=== PATIENT | female | born 1980 | race Two or more races ===

== ENCOUNTER 2017-04-15 22:00 | Inpatient (IN) | payer BC ==
[2017-04-15 23:14] LABS: ABSOLUTE BASOPHILS # (AUTO) 0.1 10^3/uL (0.0-0.2); ABSOLUTE EOSINOPHILS # (AUTO) 0.1 10^3/uL (0.0-0.6); ABSOLUTE LYMPHOCYTES (AUTO) 1.2 10^3/uL (0.5-4.7); ABSOLUTE MONOCYTES (AUTO) 0.4 10^3/uL (0.1-1.4); ABSOLUTE NEUT (AUTO) 6.4 10^3/uL (1.7-8.2); BASOPHILS % (AUTO) 0.7 % (0-2); EOSINOPHILS % (AUTO) 0.7 % (0-6); HEMATOCRIT 35.5 % (36.0-47.0); HEMOGLOBIN 11.6 g/dL (12.0-15.5); HGB HCT DIFFERENCE -0.7; LYMPHOCYTES % (AUTO) 14.9 % (13-45); MEAN CORPUSCULAR HEMOGLOBIN 24.5 pg (27.0-33.4); MEAN CORPUSCULAR HGB CONC 32.5 g/dL (32.0-36.0); MEAN CORPUSCULAR VOLUME 75 fl (80-97); RED BLOOD COUNT 4.71 10^6/uL (3.72-5.28); RED CELL DISTRIBUTION WIDTH 16.3 % (11.5-14.0); SEGMENTED NEUTROPHILS % (AUTO) 78.7 % (42-78); WHITE BLOOD COUNT 8.1 10^3/uL (4.0-10.5)
[2017-04-15] MEDS ORDERED: HYDROCODONE/ACETAMINOPHEN 5-325 MG TABLET PO ONE (23:27)
[2017-04-15 23:29] LABS: ALANINE AMINOTRANSFERASE 31 U/L (9-52); ALBUMIN 4.4 g/dL (3.5-5.0); ALKALINE PHOSPHATASE 66 U/L (38-126); ANION GAP 12 (5-19); ASPARTATE AMINO TRANSFERASE 22 U/L (14-36); BILIRUBIN,DIRECT 0.3 mg/dL (0.0-0.4); BILIRUBIN,TOTAL 0.4 mg/dL (0.2-1.3); BLOOD UREA NITROGEN 17 mg/dL (7-20); CALCIUM 9.4 mg/dL (8.4-10.2); CARBON DIOXIDE 24 mmol/L (22-30); CHLORIDE 102 mmol/L (98-107); CREATININE RESULT 0.68 mg/dL (0.52-1.25); GLUCOSE 127 mg/dL (75-110); LIPASE 86.6 U/L (23-300); POTASSIUM 4.3 mmol/L (3.6-5.0); SODIUM 137.7 mmol/L (137-145); TOTAL PROTEIN 7.7 g/dL (6.3-8.2)
--- NOTE | 2017-04-15 23:30 | ER Document Report ---
ED General - General Chief Complaint: Abdominal Pain Stated Complaint: ABDOMINAL PAIN Time Seen by Provider: 04/15/17 22:53 Mode of Arrival: Ambulatory Information source: Patient Notes: 36-year-old female presents with complaints of suprapubic right lower quadrant abdominal pain as of this morning. Patient noticed that she had flank pain pain when she urinated. Patient denies any fevers admits to sweats with nausea vomiting 2 Patient denies any previous abdominal surgeries TRAVEL OUTSIDE OF THE [place] IN LAST 30 DAYS: No - HPI Onset: This afternoon Onset/Duration: Sudden Quality of pain: Achy Severity: Mild Pain Level: 1 Associated symptoms: Diarrhea, Nausea, Vomiting Exacerbated by: Denies Relieved by: Denies Similar symptoms previously: No Recently seen / treated by doctor: No - Related Data Allergies/Adverse Reactions: aspirin Allergy (Verified 04/15/17 22:51) Past Medical History - Social History Smoking Status: Never Smoker Cigarette use (# per day): No Chew tobacco use (# tins/day): No Smoking Education Provided: No Family History: Reviewed & Not Pertinent Renal/ Medical History: Denies: Hx Peritoneal Dialysis Review of Systems - Review of Systems Notes: REVIEW OF SYSTEMS: CONSTITUTIONAL : Denies fever, chills, or sweats. Denies recent illness. EENT: Denies eye, ear, throat, or mouth pain or symptoms. Denies nasal or sinus congestion or discharge. Denies throat, tongue, or mouth swelling or difficulty swallowing. CARDIOVASCULAR: Denies chest pain. Denies palpitations or racing or irregular heart beat. Denies ankle edema. RESPIRATORY: Denies cough, cold, or chest congestion. Denies shortness of breath, difficulty breathing, or wheezing. GASTROINTESTINAL: Admits to right lower quadrant abdominal pain GENITOURINARY: Denies difficulty urinating, painful urination, burning, frequency, blood in urine, or discharge. FEMALE GENITOURINARY: Denies vaginal bleeding, heavy or abnormal periods, irregular periods. Denies vaginal discharge or odor. MUSCULOSKELETAL: Denies back or neck pain or stiffness. Denies joint pain or swelling. SKIN: Denies rash, lesions or sores. HEMATOLOGIC : Denies easy bruising or bleeding. LYMPHATIC: Denies swollen, enlarged glands. NEUROLOGICAL: Denies confusion or altered mental status. Denies passing out or loss of consciousness. Denies dizziness or lightheadedness. Denies headache. Denies weakness or paralysis or loss of use of either side. Denies problems with gait or speech. Denies sensory loss, numbness, or tingling. Denies seizures. PSYCHIATRIC: Denies anxiety or stress. Denies depression, suicidal ideation, or homicidal ideation. ALL OTHER SYSTEMS REVIEWED AND NEGATIVE. PHYSICAL EXAMINATION: GENERAL: Well-appearing, well-nourished and in no acute distress. HEAD: Atraumatic, normocephalic. EYES: Pupils equal round and reactive to light, extraocular movements intact, conjunctiva are normal. ENT: Nares patent, oropharynx clear without exudates. Moist mucous membranes. NECK: Normal range of motion, supple without lymphadenopathy LUNGS: Breath sounds clear to auscultation bilaterally and equal. No wheezes rales or rhonchi. HEART: Regular rate and rhythm without murmurs ABDOMEN: Soft, moderately tender in the suprapubic right lower quadrant no rebound or guarding Female : deferred Musculoskeletal: Normal range of motion, no pitting or edema. No cyanosis. NEUROLOGICAL: Cranial nerves grossly intact. Normal speech, normal gait. Normal sensory, motor exams PSYCH: Normal mood, normal affect. SKIN: Warm, Dry, normal turgor, no rashes or lesions noted. Dictation was performed using [employer] voice recognition software Physical Exam - Vital signs Vitals: Temp Pulse Resp BP Pulse Ox 97.9 F 73 16 126/81 H 100 04/15/17 22:09 04/15/17 22:09 04/15/17 22:09 04/15/17 22:09 04/15/17 22:09 Course - Re-evaluation Re-evalutation: 04/15/17 23:29 Patient has probable urinary tract infection given the pain with urination, I explained my concerns for intra-abdominal source of infection as well 04/16/17 00:36 Urinalysis notes no obvious sign of infection, CT abdomen pelvis ordered 04/16/17 03:55 CT was consistent with acute appendicitis, given patient's level of pain I did speak with the on-call surgeon who agrees to take the patient - Vital Signs Vital signs: Temp Pulse Resp BP Pulse Ox 97.9 F 73 16 126/81 H 100 04/15/17 22:09 04/15/17 22:09 04/15/17 22:09 04/15/17 22:09 04/15/17 22:09 - Laboratory Result Diagrams: 04/15/17 22:45 04/15/17 22:45 Laboratory results interpreted by me: 04/15/17 04/15/17 04/15/17 22:45 22:45 23:40 Hgb 11.6 L Hct 35.5 L MCV 75 L MCH 24.5 L RDW 16.3 H Seg Neutrophils % 78.7 H Glucose 127 H Urine Ketones 20 H Urine Blood MODERATE H - Diagnostic Test Radiology reviewed: Image reviewed, Reports reviewed - Acute appendicitis Discharge - Discharge Clinical Impression: Nausea, vomiting, and diarrhea Acute appendicitis Qualifiers: Acute appendicitis type: with localized peritonitis Qualified Code(s): K35.3 - Acute appendicitis with localized peritonitis Condition: Stable Disposition: ADMITTED INPATIENT Admitting Provider: Surgicalist Unit Admitted: Surgical Floor
[2017-04-16 00:33] LABS: APPEARANCE,URINE SLIGHTLY-CLOUDY; BILIRUBIN,URINE NEGATIVE (NEGATIVE); GLUCOSE, URINE NEGATIVE (NEGATIVE); KETONES,URINE 20 mg/dL (NEGATIVE); LEUKOCYTE ESTERASE,URINE NEGATIVE (NEGATIVE); NITRITE,URINE NEGATIVE (NEGATIVE); PROTEIN,URINE NEGATIVE (NEGATIVE); URINE SPECIFIC GRAVITY 1.021; UROBILINOGEN,URINE NEGATIVE mg/dL (<2.0)
[2017-04-16] MEDS ORDERED: ONDANSETRON HCL INJ/PF 4 MG/2 ML SDV IV ONE (01:09)
[2017-04-16] MEDS ORDERED: NORMAL SALINE 1000 ML 1,000 ML IV ONE ×2 (01:09→04:08)
[2017-04-16] MEDS ORDERED: MORPHINE SULFATE 10 MG/ML INJ IV ONE (01:09)
[2017-04-16] MEDS ORDERED: METOCLOPRAMIDE HCL INJ/PF 10 MG/2 ML SDV IV ONE (01:54)
--- NOTE | 2017-04-16 03:45 | RADIOLOGY REPORT (SQ) ---
EXAM DESCRIPTION: CT ABD/PELVIS WITH IV ORAL COMPLETED DATE/TIME: 04/16/2017 3:13 am REASON FOR STUDY: RLQ pain COMPARISON: None. TECHNIQUE: CT scan of the abdomen and pelvis performed using helical scanning technique with dynamic intravenous contrast injection. No oral contrast. Images reviewed with lung, soft tissue, and bone windows. Reconstructed coronal and sagittal MPR images reviewed. Delayed images for evaluation of the urinary system also acquired. All images stored on PACS. All CT scanners at this facility use dose modulation, iterative reconstruction, and/or weight based d osing when appropriate to reduce radiation dose to as low as reasonably achievable (ALARA). [facility]: Dose Right [facility]: CareDose [facility]: Dose Right [facility]: Teradose 4D [facility]: HealthLinkNow CONTRAST TYPE AND DOSE: contrast/concentration: Isovue 370.00 mg/ml; Total Contrast Delivered: 89.0 ml; Total Saline Delivered: 70.0 ml RENAL FUNCTION: None required. The patient is less than 50 years old. RADIATION DOSE: Up-to-date CT equipment and radiation dose reduction techniques were employed. CTDIv ol: 21.3 - 21.3 mGy. DLP: 2198 mGy-cm.. LIMITATIONS: None. FINDINGS: LOWER CHEST: Mild bibasilar atelectasis. No pleural effusion. LIVER: Scattered low density areas within the liver parenchyma measuring up to 1.7 cm, probably repre senting small cysts. No dilated ducts. SPLEEN: Normal size. PANCREAS: No significant calcifications. No adjacent inflammation or peripancreatic fluid collections . Pancreatic duct not dilated. GALLBLADDER: No identified stones by CT criteria. No inflammatory changes to suggest cholecystitis. ADRENAL GLANDS: No significant masses or asymmetry. RIGHT KIDNEY AND URETER: No solid masses. No significant calcifications. No hydronephrosis or hyd roureter. LEFT KIDNEY AND URETER: No solid masses. No significant calcifications. No hydronephrosis or hydr oureter. AORTA AND VESSELS: No abdominal aortic aneurysm. RETROPERITONEUM: No retroperitoneal hemorrhage or masses. BOWEL AND PERITONEAL CAVITY: No dilated bowel loops or inflammatory changes. No free fluid or or free -air. APPENDIX: Mildly prominent measuring 8 mm in diameter. There is no periappendiceal soft tissue stran ding or fluid collection. PELVIS: The urinary bladder is distended. The uterus is present. There is a 5.3 x 6.4 x 4.4 mass co ntaining fat, soft tissue and calcification at the right adnexa, appearance most consistent with an o varian dermoid. No free fluid. ABDOMINAL WALL: No hernias. BONES: No acute findings. IMPRESSION: Mildly prominent appendix measuring 8 mm in diameter with no periappendiceal soft tissue stranding, may represent normal variant versus early acute appendicitis. Please correlate with clin ical exam. Right-sided ovarian dermoid. If surgical removal is not performed, then this can be followup with ye alexandra pelvic ultrasounds. TECHNICAL DOCUMENTATION: JOB ID: [id number] Quality ID # [id number]: Final reports with documentation of one or more dose reduction techniques (e.g., Au tomated exposure control, adjustment of the mA and/or kV according to patient size, use of iterative reconstruction technique) 2010 [employer]- All Rights Reserved
[2017-04-16] MEDS ORDERED: PIPERACILLIN/TAZOBACTAM 3.375 GM VIAL IV ONE (04:07)
--- NOTE | 2017-04-16 04:21 | PDOC H&P ---
History of Present Illness Admission Date/PCP: 04/16/17 04:05 LASHAUN SANDRA NP Patient complains of: right lower quadrant pain History of Present Illness: ERASTO DUENAS is a 36 year old female who presents with complaints of suprapubic right lower quadrant abdominal pain as of this morning. Patient noticed that she had flank pain pain when she urinated. Patient denies any fevers admits to sweats with nausea vomiting 2 Patient denies any previous abdominal surgeries Past Medical History Medical History: None Past Surgical History Past Surgical History: Reports: None Social History Smoking Status: Never Smoker Family History Family History: Reviewed & Not Pertinent Parental Family History Reviewed: Yes - negative Children Family History Reviewed: Yes - negative Sibling(s) Family History Reviewed.: Yes - negative Medication/Allergy Allergies/Adverse Reactions: aspirin Allergy (Verified 04/15/17 22:51) Physical Exam Vital Signs: Temp Pulse Resp BP Pulse Ox 97.9 F 94 18 119/67 98 04/16/17 03:57 04/16/17 03:57 04/16/17 03:57 04/16/17 03:57 04/16/17 03:57 General appearance: PRESENT: no acute distress Eye exam: PRESENT: EOMI Neck exam: PRESENT: full ROM Respiratory exam: PRESENT: clear to auscultation michael Cardiovascular exam: PRESENT: RRR GI/Abdominal exam: PRESENT: normal bowel sounds - tender in the right lower quadrant, tenderness Results Impressions: Abdomen/Pelvis CT 04/16/17 00:00 IMPRESSION: Mildly prominent appendix measuring 8 mm in diameter with no periappendiceal soft tissue stranding, may represent normal variant versus early acute appendicitis. Please correlate with clinical exam. Right-sided ovarian dermoid. If surgical removal is not performed, then this can be followup with yearly pelvic ultrasounds. Assessment & Plan - Diagnosis (1) Acute appendicitis Qualifiers: Acute appendicitis type: with localized peritonitis Qualified Code(s): K35.3 - Acute appendicitis with localized peritonitis - Plan Summary Plan Summary: Assessment: Right lower quadrant pain wit nausea CT scan shows inflamed appendix without stranding presence of R ovarian dermoid Blood work within normal limits Physical exam shows pointed right lower quadrant tenderness Plan: Aggressive IV hydration (total 2 L NS, then NS 150 mL/hr) Zosyn 3.375 gr IVPB before surgery Plan laparoscopic appendectomy, possible open. Procedure, risks, benefits, complications, alternatives explained to the patient, she understands all the above, her questions were answered, and she decides to proceed
[2017-04-16] MEDS ORDERED: BUPIVACAINE HCL 0.5%-EPI 1:200000 INJ/PF 30 ML VIAL ONE (04:31)
[2017-04-16] MEDS ORDERED: FENTANYL CITRATE INJ/PF 100 MCG/2 ML AMPUL ONE (04:39)
[2017-04-16] MEDS ORDERED: MIDAZOLAM 2 MG/2 ML INJ ONE (04:39)
[2017-04-16] MEDS ORDERED: ONDANSETRON HCL INJ/PF 4 MG/2 ML SDV ONE (04:39)
[2017-04-16] MEDS ORDERED: KETOROLAC TROMETHAMINE 60 MG/2 ML SDV ONE (04:39)
[2017-04-16] MEDS ORDERED: ACETAMINOPHEN 100 ML IV ONE (04:40)
[2017-04-16] MEDS ORDERED: PROPOFOL INJ 200 MG/20 ML VIAL IV ONE (04:40)
[2017-04-16] MEDS ORDERED: HYDROMORPHONE HCL INJ/PF 2 MG/ML AMPULE ONE (04:40)
[2017-04-16] MEDS ORDERED: PROMETHAZINE HCL INJ 25 MG/1 ML VIAL IV PRN (05:16)
[2017-04-16] MEDS ORDERED: MEPERIDINE HCL/PF INJ 25 MG/1 ML DISP.SYRIN IV PRN (05:16)
[2017-04-16] MEDS ORDERED: DIPHENHYDRAMINE HCL 50 MG/ML VIAL IV PRN (05:16)
[2017-04-16] MEDS ORDERED: FENTANYL CITRATE INJ/PF 100 MCG/2 ML AMPUL IV PRN ×3 (05:16)
[2017-04-16] MEDS ORDERED: MORPHINE SULFATE 10 MG/ML INJ IV PRN ×2 (05:16→06:31)
[2017-04-16] MEDS ORDERED: ONDANSETRON HCL INJ/PF 4 MG/2 ML SDV IV PRN (05:16)
[2017-04-16] MEDS ORDERED: NORMAL SALINE 1,000 ML IV PRN (06:31)
--- NOTE | 2017-04-16 06:31 | Operative Report ---
Operative Report DATE OF SURGERY: 04/16/17 PREOPERATIVE DIAGNOSIS: Acute appendicitis; Right dermoid cyst POSTOPERATIVE DIAGNOSIS: Normal appendix, dermoid cyst OPERATION: diagnostic laparotomy, laparoscopic appendectomy SURGEON: SANJUANA TORRES 1ST CHANNELER OUTSOLE: SHANNON BURRIS ANESTHESIA: Local TISSUE REMOVED OR ALTERED: appendix COMPLICATIONS: none ESTIMATED BLOOD LOSS: minimal <10 cc INTRAOPERATIVE FINDINGS: normal appendix. large right ovarian dermoid cyst PROCEDURE: lDiagnostic laparoscopy Laparoscoic appendectomy
--- NOTE | 2017-04-16 06:53 | OPERATIVE REPORT E ---
Operative Report NAME: ERASTO DUENAS : 1980 AGE: 36Y DATE OF SURGERY: 04/16/2017 ROOM: ED02 PREOPERATIVE DIAGNOSIS: PELVIC PAIN. POSTOPERATIVE DIAGNOSES: 1. TORSED RIGHT OVARIAN OVARY. 2. GROSSLY NORMAL-APPEARING APPENDIX IN PATIENT WITH RIGHT-SIDED PELVIC PAIN. OPERATION: 1. Appendectomy, Dr. Fairbanks. 2. Right salpingo-oophorectomy, Fara Lua MD PRIMARY SURGEON: Dimas Fairbanks MD EPIDEMIOLOGY INVESTIGATOR SURGEON: FARA LUA M.D. FINDINGS: There was approximately a 6 to 7 cm purplish right ovarian mass in the right lower quadrant with edematous fallopian tube around the base of it. The uterus and left tube and ovary appeared normal. The appendix appeared grossly normal. ESTIMATED BLOOD LOSS: Per Dr. Fairbanks. SPECIMENS REMOVED: 1. Appendix by Dr. Fairbanks. 2. Right tube and ovary by Fara Lua MD, all to pathology. 3. There was also fluid from the apparent dermoid cyst that was removed and sent for cytology. DESCRIPTION OF PROCEDURE: I was called to the operating room by Dr. Fairbanks after the patient was under general anesthesia and with ports in place. He was near the end of performing the appendectomy when I arrived. We then reviewed the right ovarian cyst which was torsed. I scrubbed into the case. At that point, the appendix was out. The infundibulopelvic vessels and uteroovarian vessels were coagulated and cut with the LigaSure. The tube was coagulated and cut near the uterus. The pedicles were connected. Care was taken to avoid the ureter during this process. Excellent hemostasis was observed. After detaching the torsed tube and ovary, the Endo Catch bag was placed within the 12 mm umbilical trocar and the specimen delivered into it. The trocar was removed and the specimen was brought to the level of the fascia. The bag was opened. The cyst was drained. Some of this fluid was sent for cytology. Using Kochers, the specimen was morcellated inside the bag and removed in pieces. Hair was removed during this process. The Endo Catch bag was totally removed as the specimen decompressed. The trocar was then replaced. The abdomen was insufflated again and the pelvis irrigated with saline. Hemostasis was assured. Dr. Fairbanks then closed the umbilical 12 mm incision port with an Endostitch under direct visualization. All trocars were removed and the abdomen was desufflated. The fascial stitch was tied down. He then closed the skin incisions. The patient was awakened from anesthesia and taken to recovery in stable condition. All sponge, needle, lap, and instrument counts were correct x2. DICTATING PHYSICIAN: FARA LUA M.D. [id number] PHY#: [id number] ID: [id number] JOB#: [id number] ACCT: [id number] cc:FARA LUA M.D. > MTDD
--- NOTE | 2017-04-16 07:39 | OPERATIVE REPORT E ---
Operative Report NAME: ERASTO DUENAS : 1980 AGE: 36Y DATE OF SURGERY: 04/16/2017 ROOM: ED02 PREOPERATIVE DIAGNOSES: 1. Acute appendicitis. 2. Dermoid cyst. POSTOPERATIVE DIAGNOSES: 1. Normal appendix. 2. Dermoid cyst. PROCEDURES: 1. Diagnostic laparoscopy. 2. Appendectomy. SURGEON: SANJUANA TORRES M.D. ANESTHESIA: General plus 10 mL of 0.5% Marcaine with epinephrine. FLUIDS: 1500 mL. DRAINS: None. COMPLICATIONS: None. INDICATION AND FINDINGS: A 36-year-old healthy female with a history of right lower quadrant pain. She had a CT scan abdomen and pelvis revealing the presence of inflamed distal appendix. In addition, there was a large dermoid cyst and followup with yearly ultrasound was recommended by the radiologist. A decision was made to take the patient to surgery to undergo diagnostic laparoscopy and laparoscopic appendectomy. DESCRIPTION OF PROCEDURE: The patient was brought into the operating room and the patient was placed in a supine position. General anesthesia induced by endotracheal intubation. Abdomen prepped and draped in the usual fashion. An incision was made just above the umbilicus. A 5 mm port and scope were inserted through the abdominal wall into the peritoneal cavity. CO2 pneumoperitoneum was then established. Under direct visualization, a 5 mm port was inserted in the right lateral quadrant of the abdomen. The 5 mm port over the umbilicus was removed and replaced with a 12 mm port and the 5 mm port was inserted in the left lower quadrant of the abdomen. The patient was placed in a Trendelenburg position with right side elevation. Examination of the right side of the abdomen revealed a normal appendix and large dermoid cyst with discoloration of the pedicle of the dermoid cyst as well, as well as discoloration of a portion of the ovary and the tube. At this point, a decision was made to perform the appendectomy and to call the [employer] insurance sales professional, Dr. Lua, to properly treat this large dermoid cyst. The appendectomy was performed by grasping the appendix at the level of the tip and the mesoappendix was divided with LigaSure and three Endoloops were placed at the base of the appendix. This was divided between the Endoloops and removed from the peritoneal cavity within an Endobag. The appendiceal stump exposed mucosa was cauterized with Bovie. Dr. Lua will describe her procedure, which included a right salpingo-oophorectomy with dermoid cyst excision ,in a separate setting. After the right salpingo-oophorectomy was accomplished, the peritoneal cavity was irrigated with normal saline until clear and this was fully aspirated. The umbilical fascial defect was closed with a figure of eight 0 Vicryl suture, which was left untied. All instruments were removed. The CO2 pneumoperitoneum was released. The ports were removed and the umbilical fascial defect closed with the previously placed 0 Vicryl suture. All skin incisions were closed with 4-0 Monocryl subcuticular suture and Dermabond applied over the closed surgical incisions. The patient tolerated the procedure well, extubated, and transferred to recovery room in satisfactory condition. DICTATING PHYSICIAN: SANJUANA TORRES M.D. [id number] PHY#: [id number] ID: [id number] JOB#: [id number] ACCT: [id number] cc:SANJUANA TORRES M.D. > MTDD
[2017-04-16] MEDS: ONDANSETRON HCL INJ/PF 4 MG/2 ML SDV IV PRN ×2 (09:44→15:58)
[2017-04-16] MEDS ORDERED: SUCCINYLCHOLINE CHLORIDE INJ 200 MG/10 ML VIAL ONE (11:24)
[2017-04-16] MEDS ORDERED: ROCURONIUM BROMIDE INJ 50 MG/5 ML VIAL IV ONE (11:24)
[2017-04-16] MEDS: PIPERACILLIN SODIUM/TAZOBACTAM 3.375 GM in NORMAL SALINE 100 ML IV SCH ×3 (12:13→23:57)
--- NOTE | 2017-04-16 14:10 | PDOC PROGRESS REPORT ---
Subjective Progress Note for:: 04/16/17 Physical Exam Vital Signs: Temp Pulse Resp BP Pulse Ox 98.4 F 84 20 108/62 98 04/16/17 13:00 04/16/17 13:00 04/16/17 13:00 04/16/17 13:00 04/16/17 13:00 Intake & Output 04/15/17 04/16/17 04/17/17 06:59 06:59 06:59 Intake Total 1150 450 Output Total 425 750 Balance 725 -300 General appearance: PRESENT: no acute distress, well-developed, well-nourished Head exam: PRESENT: atraumatic, normocephalic Eye exam: PRESENT: conjunctiva pink, EOMI, PERRLA. ABSENT: scleral icterus Ear exam: PRESENT: normal external ear exam Mouth exam: PRESENT: moist, tongue midline Neck exam: ABSENT: carotid bruit, JVD, lymphadenopathy, thyromegaly Respiratory exam: PRESENT: clear to auscultation michael. ABSENT: rales, rhonchi, wheezes Cardiovascular exam: PRESENT: RRR. ABSENT: diastolic murmur, rubs, systolic murmur Pulses: PRESENT: normal dorsalis pedis pul Vascular exam: PRESENT: normal capillary refill GI/Abdominal exam: PRESENT: normal bowel sounds, soft, other - incisions clean, dry. ABSENT: distended, guarding, mass, organolmegaly, rebound, tenderness Rectal exam: PRESENT: deferred Extremities exam: PRESENT: full ROM. ABSENT: calf tenderness, clubbing, pedal edema Neurological exam: PRESENT: alert, awake, oriented to person, oriented to place , oriented to time, oriented to situation, CN II-XII grossly intact. ABSENT: motor sensory deficit Psychiatric exam: PRESENT: appropriate affect, normal mood. ABSENT: homicidal ideation, suicidal ideation Skin exam: PRESENT: dry, intact, warm. ABSENT: cyanosis, rash Results Impressions: Abdomen/Pelvis CT 04/16/17 00:00 IMPRESSION: Mildly prominent appendix measuring 8 mm in diameter with no periappendiceal soft tissue stranding, may represent normal variant versus early acute appendicitis. Please correlate with clinical exam. Right-sided ovarian dermoid. If surgical removal is not performed, then this can be followup with yearly pelvic ultrasounds. Assessment & Plan - Diagnosis (1) Acute appendicitis Qualifiers: Acute appendicitis type: with localized peritonitis Qualified Code(s): K35.3 - Acute appendicitis with localized peritonitis - Plan Summary Plan Summary: A/ S/p laparosocpic appendectomy, normal appendix S/P La[roscopic R [id number] patient complaining of mild nausea Plan: patient to remain hospitalized and discharged tomorrow check blood work in AM
[2017-04-16] MEDS ORDERED: ACETAMINOPHEN 325 MG TABLET PO PRN (14:11)
[2017-04-16] MEDS: KETOROLAC TROMETHAMINE INJ/PF 30 MG/1 ML SDV IV PRN ×2 (15:59→21:50)
[2017-04-17] MEDS: PIPERACILLIN SODIUM/TAZOBACTAM 3.375 GM in NORMAL SALINE 100 ML IV SCH ×2 (05:16→11:46)
[2017-04-17 10:00] LABS: HEMATOCRIT 31.6 % (36.0-47.0); HEMOGLOBIN 10.2 g/dL (12.0-15.5); MEAN CORPUSCULAR HEMOGLOBIN 24.7 pg (27.0-33.4); MEAN CORPUSCULAR HGB CONC 32.4 g/dL (32.0-36.0); MEAN CORPUSCULAR VOLUME 76 fl (80-97); RED BLOOD COUNT 4.14 10^6/uL (3.72-5.28); RED CELL DISTRIBUTION WIDTH 16.3 % (11.5-14.0); WHITE BLOOD COUNT 5.4 10^3/uL (4.0-10.5)
[2017-04-17] MEDS: KETOROLAC TROMETHAMINE INJ/PF 30 MG/1 ML SDV IV PRN (11:45)
[2017-04-17] MEDS ORDERED: PIPERACILLIN/TAZOBACTAM 3.375 GM VIAL IV SCH (12:00)
--- NOTE | 2017-04-17 12:38 | PDOC PROGRESS REPORT ---
Subjective Progress Note for:: 04/17/17 Subjective:: comfortable, tolerating po well, no incisional pain Physical Exam Vital Signs: Temp Pulse Resp BP Pulse Ox 98.2 F 81 16 114/69 100 04/17/17 11:17 04/17/17 11:17 04/17/17 11:17 04/17/17 11:17 04/17/17 11:17 Intake & Output 04/16/17 04/17/17 04/18/17 06:59 06:59 06:59 Intake Total 1150 2158 Output Total 425 2850 Balance 725 -692 Respiratory exam: PRESENT: clear to auscultation michael Cardiovascular exam: PRESENT: RRR GI/Abdominal exam: PRESENT: normal bowel sounds, soft, other - incisions clean dry intact Results Laboratory Results: 04/17/17 09:46 04/17/17 09:46 WBC 5.4 RBC 4.14 Hgb 10.2 L Hct 31.6 L MCV 76 L MCH 24.7 L MCHC 32.4 RDW 16.3 H Plt Count 183 Impressions: Abdomen/Pelvis CT 04/16/17 00:00 IMPRESSION: Mildly prominent appendix measuring 8 mm in diameter with no periappendiceal soft tissue stranding, may represent normal variant versus early acute appendicitis. Please correlate with clinical exam. Right-sided ovarian dermoid. If surgical removal is not performed, then this can be followup with yearly pelvic ultrasounds. Assessment & Plan - Diagnosis (1) Acute appendicitis Qualifiers: Acute appendicitis type: with localized peritonitis Qualified Code(s): K35.3 - Acute appendicitis with localized peritonitis - Plan Summary Plan Summary: A/ POD#1 after diagnostic laparoscopy, appendecotmy and laparoscopic dermoid cyst excision patient doing well Vital signs stable blood work normal physical exam normal P/ Discharge home today Follow up with the surgery clinic within 1 week Follow up with Dr. Go ([employer]) within 1 week regular diet activities as tolerated no wound care needed shower immediately, bathe in 2 weeks Tylenol/Aleve for pain
--- NOTE | 2017-04-17 13:18 | DISCHARGE SUMMARY E ---
Discharge Summary NAME: ERASTO DUENAS : 1980 AGE: 36Y ADMITTED: 04/16/2017 DISCHARGED: 04/17/2017 FINAL DIAGNOSES: 1. Right lower quadrant pain. 2. Dermoid cyst, right tubo-ovarian complex. PROCEDURE: On 04/16/2017 the patient underwent: 1. Diagnostic laparoscopy. 2. Incidental appendectomy. 3. Excision of right dermoid cyst with right tubo-ovarian complex. COMPLICATIONS: None. HOSPITAL COURSE: Healthy 36-year-old female with a 3- to 4-month history of abdominal pain in the right lower quadrant. The patient was seen in the emergency room. A CAT scan of the abdomen and pelvis was done revealing possibly inflamed appendicitis together with a dermoid cyst. The patient was taken to surgery and underwent diagnostic laparoscopy for possible laparoscopic appendectomy. During the procedure the appendix was found to be normal; however, a large right dermoid cyst attached to the right tube and ovary and ischemic changes of these were identified. The septic cleaner, Dr. Lua, was notified. She came to the operating room during the procedure, and she performed a right salpingo-oophorectomy with excision of the right dermoid cyst. The procedure was uneventful. No complications were noted. The postop course was unremarkable. Diet was advanced. Her vital signs remained stable. On the day of discharge the patient had no complaints, her vital signs were stable, and her physical exam was unremarkable. The abdomen was soft. the incisions were clean and intact. Blood work of CBC and BMP was normal. She was tolerating p.o. well. She was discharged home on 04/17/2017. She was given a follow-up appointment with Dr. Vinson in the office in about a week and with Dr. Lua, the septic cleaner, in a week. She was instructed to shower only, no wound care needed, regular diet, activity as tolerated, bath in 2 weeks. She was given Tylenol and Aleve p.r.n. for pain. DICTATING PHYSICIAN: SANJUANA TORRES M.D. [id number] PHY#: [id number] ID: [id number] JOB#: [id number] ACCT: [id number] cc:SANJUANA TORRES M.D. MARVA GOTTLIEB M.D. > [facility]
[2017-04-17 13:33] VITALS: BP 109/63
== END 2017-04-17 14:17 | disposition home or self-care (01) | DRG 742 ==
LOC: ER 22:00 → EH 04-16 04:05 → UNDOADMIN 04-16 04:05 → EH 04-16 04:12 → 4W 04-16 07:37 → 4N 04-16 16:16
PROVIDERS: ADMIT Surgery; ATTEND Surgery
PROC: 0U904ZX Drainage of Right Ovary, Percutaneous Endoscopic Approach, Diagnostic (ICD-10-PCS; 2017-04-16)
PROC: 0UT04ZZ Resection of Right Ovary, Percutaneous Endoscopic Approach (ICD-10-PCS; 2017-04-16)
PROC: 0DTJ4ZZ Resection of Appendix, Percutaneous Endoscopic Approach (ICD-10-PCS; 2017-04-16)
PROC: 0UT54ZZ Resection of Right Fallopian Tube, Percutaneous Endoscopic Approach (ICD-10-PCS; principal; 2017-04-16 05:00)
DX: D27.0 Benign neoplasm of right ovary (principal); K35.3 Acute appendicitis with localized peritonitis; Z88.6 Allergy status to analgesic agent
CPT/HCPCS: 36415; 74177; 80053; 81001; 81025; 83690; 840; 85025; 85027; 88304; 88307; 96361; 96374; 96375; 99285; J0131; J0330; J1170; J1885; J2250; J2270; J2405; J2543; J2704; J2765; J3010; J3490; J7030

== ENCOUNTER 2019-06-02 07:04 | Day surgery (SDC) | payer BC ==
[2019-05-27 10:38] LABS: HEMATOCRIT 36.5 % (36.0-47.0); HEMOGLOBIN 11.7 g/dL (12.0-15.5); MEAN CORPUSCULAR HEMOGLOBIN 23.6 pg (27.0-33.4); MEAN CORPUSCULAR HGB CONC 32.1 g/dL (32.0-36.0); MEAN CORPUSCULAR VOLUME 73 fl (80-97); PLATELET COUNT 255 10^3/uL (150-450); RED BLOOD COUNT 4.97 10^6/uL (3.72-5.28); RED CELL DISTRIBUTION WIDTH 16.9 % (11.5-14.0); WHITE BLOOD COUNT 5.4 10^3/uL (4.0-10.5)
[2019-05-27 11:05] LABS: APPEARANCE,URINE SLIGHTLY-CLOUDY; BILIRUBIN,URINE NEGATIVE (NEGATIVE); COLOR,URINE YELLOW; GLUCOSE, URINE NEGATIVE (NEGATIVE); KETONES,URINE NEGATIVE (NEGATIVE); LEUKOCYTE ESTERASE,URINE TRACE (NEGATIVE); NITRITE,URINE NEGATIVE (NEGATIVE); PROTEIN,URINE NEGATIVE (NEGATIVE); UROBILINOGEN,URINE NEGATIVE mg/dL (<2.0)
[2019-05-27 11:09] LABS: ALBUMIN 4.4 g/dL (3.5-5.0); ALKALINE PHOSPHATASE 64 U/L (38-126); ANION GAP 9 (5-19); ASPARTATE AMINO TRANSFERASE 22 U/L (14-36); BILIRUBIN,DIRECT 0.2 mg/dL (0.0-0.4); BILIRUBIN,TOTAL 0.3 mg/dL (0.2-1.3); BLOOD UREA NITROGEN 18 mg/dL (7-20); CALCIUM 9.4 mg/dL (8.4-10.2); CARBON DIOXIDE 26 mmol/L (22-30); CHLORIDE 103 mmol/L (98-107); GLUCOSE 79 mg/dL (75-110); POTASSIUM 4.3 mmol/L (3.6-5.0); TOTAL PROTEIN 7.3 g/dL (6.3-8.2)
[~2019-06-02 07:04] MED LIST: CEFAZOLIN 1 GM/D5W RTU 1 GM/50 ML RTUPB IV ONE; CEFAZOLIN 1 GM/D5W RTU 1 GM/50 ML RTUPB IV PRN; LACTATED RINGERS 1000 ML IV PRN; LIDOCAINE 0.5% INJ-PF (5 MG/ML) 50 ML SDV SUBCUT PRN
[2019-06-02] MEDS ORDERED: LIDOCAINE 1% INJ-PF (10 MG/ML) 30 ML SDV ONE (07:24)
[2019-06-02] MEDS ORDERED: SCOPOLAMINE HYDROBROMIDE 1.5 MG PATCH.TD72 ONE (07:51)
[2019-06-02] MEDS ORDERED: MIDAZOLAM 2 MG/2 ML INJ ONE ×2 (07:51→09:25)
[2019-06-02] MEDS ORDERED: FAMOTIDINE INJ/PF 20 MG/2 ML SDV IV ONE (07:51)
[2019-06-02] MEDS ORDERED: MEPERIDINE HCL/PF INJ 25 MG/1 ML DISP.SYRIN IV PRN (07:59)
[2019-06-02] MEDS ORDERED: OXYCODONE-ACETAMINOPHEN 5-325 MG TABLET PO PRN ×2 (07:59)
[2019-06-02] MEDS ORDERED: FENTANYL CITRATE INJ/PF 100 MCG/2 ML AMPUL IV PRN ×3 (07:59)
[2019-06-02] MEDS ORDERED: PROMETHAZINE HCL INJ 25 MG/1 ML VIAL IV PRN ×2 (07:59)
[2019-06-02] MEDS ORDERED: DIPHENHYDRAMINE HCL 50 MG/ML VIAL IV PRN (07:59)
[2019-06-02] MEDS ORDERED: FENTANYL CITRATE INJ/PF 250 MCG/5 ML AMPULE ONE (09:25)
[2019-06-02] MEDS ORDERED: PROPOFOL INJ 200 MG/20 ML VIAL IV ONE (09:25)
[2019-06-02] MEDS ORDERED: BUPIVACAINE HCL 0.25 % INJ/PF (2.5 MG/1 ML) 30 ML VIAL ONE (09:39)
[2019-06-02] MEDS ORDERED: FENTANYL CITRATE INJ/PF 100 MCG/2 ML AMPUL ONE (11:19)
[2019-06-02] MEDS ORDERED: ACETAMINOPHEN 1,000 MG/100 ML RTUPB IV ONE (11:40)
[2019-06-02] MEDS ORDERED: OXYCODONE-ACETAMINOPHEN 5-325 MG TABLET ONE (12:05)
[2019-06-02] MEDS ORDERED: ONDANSETRON HCL INJ/PF 4 MG/2 ML SDV ONE (12:13)
[2019-06-02] MEDS ORDERED: ROCURONIUM BROMIDE INJ 50 MG/5 ML VIAL IV ONE (12:13)
[2019-06-02] MEDS ORDERED: GLYCOPYRROLATE 1 MG/5 ML VIAL ONE (12:13)
[2019-06-02] MEDS ORDERED: LIDOCAINE 2% INJ-PF (20 MG/ML) 2 ML AMPUL ONE (12:13)
[2019-06-02] MEDS ORDERED: NEOSTIGMINE METHYLSULFATE 10 MG/10 ML VIAL ONE (12:13)
[2019-06-02] MEDS ORDERED: DEXAMETHASONE SOD PHOSPHATE INJ 4 MG/1 ML VIAL ONE (12:13)
[2019-06-02 13:31] VITALS: BP 100/64
--- NOTE | 2019-06-05 15:44 | Operative Report ---
Operative Report DATE OF SURGERY: 06/02/19 PREOPERATIVE DIAGNOSIS: Pelvic pain and irregular menses POSTOPERATIVE DIAGNOSIS: Pelvic endometriosis and adenomyosis OPERATION: Dilatation and curettage laparoscopy SURGEON: LAURY SANDRA ANESTHESIA: GA TISSUE REMOVED OR ALTERED: Endometrium ESTIMATED BLOOD LOSS: Negligible INTRAOPERATIVE FINDINGS: Pelvic endometriosis uterine adenomyosis PROCEDURE: Patient was brought into the operating room and placed on the table in a supine position. Patient was then inducted under general anesthesia. Patient was then repositioned in a dorsal lithotomy position. Following a timeout the patient had her bladder drained of sterile urine. A pelvic under anesthesia was then performed. A weighted speculum was then inserted into the vagina and the cervix was grasped on its anterior lip with a single-tooth tenaculum and an Allis clamp. Uterus was sounded to 8 cm. Uterus was dilated with Hegar dilators and then curetted with a small sharp curette. A tenaculum probe was then placed on the anterior lip of the cervix. Attention was then turned toward the abdominal wall. A varies needle was entered inserted through the umbilicus and carried through the various layers until the abdominal cavity was entered. A drop of saline was placed on the varies needle the abdomen was picked up and the saline easily egressed into the abdominal cavity. The varies needle was then hooked up to the CO2. Opening pressure was noted to be 7 cm of water. Approximately 3 L of CO2 were injected until a pressure of 15 cm of water was reached. Having established a pneumoperitoneum the varies needle was removed and a small incision was made infraumbilically. Through this incision a trocar and sleeve were inserted. The trocar was removed and a laparoscope was inserted through the sleeve. A second incision was then made suprapubically. Through this incision a trocar was inserted until the peritoneal cavity was entered. The trocar was then removed and through this sleeve a probe was inserted. The contents of the pelvis and abdominal cavity was then visualized and video recorded with the above findings. Having terminated the procedure the suprapubic sleeve was removed. There was no evidence of active bleeding. The laparoscope was removed. The CO2 was allowed to escape. The subumbilical sleeve was then removed. The defect in the subumbilical fascia were repaired with interrupted using 0 Dexon. The defects in the suprapubic fascia were repaired with 0 Dexon. The skin edges and the subumbilical incision were then closed with a subcuticular using 4-0 Prolene. The skin edges and the suprapubic incision were then closed using interrupted 4-0 Prolene. Attention was then turned down to the vagina and the tenaculum probe was removed. This terminated the procedure the patient was placed back in a supine position and anesthesia was discontinued. Patient was transferred to the recovery room in satisfactory condition.
== END 2019-06-02 13:00 | disposition home or self-care (01) ==
LOC: OROUT 07:04
PROVIDERS: ATTEND Obstetrics & Gynecology
DX: R10.32 Left lower quadrant pain (principal); N70.11 Chronic salpingitis; N92.1 Excessive and frequent menstruation with irregular cycle; N80.3 Endometriosis of pelvic peritoneum; N80.0 Endometriosis of uterus
CPT/HCPCS: 36415; 87205; 87070; 85027; 81025; 87075; 80053; 81001; 88305 ×2; 00840; 58120; 49320; J2250; J0690; J3490 ×3; J1100; J3010 ×2; J2710; J2405; J2704; S0028; J0131; 840

== ENCOUNTER → 2020-01-27 | Outpatient (CLI) | payer BC | LOC: OD 15:28 | PROVIDERS: ATTEND Otolaryngology | DX: J30.9 Allergic rhinitis, unspecified (principal) | CPT/HCPCS: 36415; 82785; 86003 ==